=== PATIENT | male | born 1975 | race Two or more races ===

== ENCOUNTER 2022-12-02 14:29 | Emergency (ER) | payer MEDICAID ==
[~2022-12-02] VITALS: Ht 167.6 cm; Wt 72.6 kg
[2022-12-02 14:30] VITALS: BP 149/86; TEMP 98.2; O2SAT 97
== END 2022-12-02 18:25 | disposition left against medical advice (07) ==
LOC: ER 14:31
DX: M79.605 Pain in left leg (principal); M79.604 Pain in right leg; Z53.21 Procedure and treatment not carried out due to patient leaving prior to being seen by health care provider